=== PATIENT | male | born 1965 | race Caucasian/White ===

== ENCOUNTER 2020-12-05 08:20 | Emergency (ER) | payer OTHER, SELFPAY ==
--- NOTE | 2020-12-05 09:21 | RAD REPORT ---
EXAM DESCRIPTION: RAD - Chest Single View - 12/05/2020 9:04 am CLINICAL HISTORY: SOB COMPARISON: No comparisons FINDINGS: Patchy airspace disease predominantly left-sided also the right lung base. The heart size is within normal limits.No acute osseous abnormality. No significant pleural effusions or pneumothora x. IMPRESSION: Patchy airspace disease in the left lung and to a lesser extent the right lung concernin g for multifocal pneumonia, including Covid-19.
[2020-12-05] MEDS ORDERED: IPRATROPIUM BROM 0.5MG/2.5ML ONE (10:21)
[2020-12-05] MEDS ORDERED: ALBUTEROL 2.5 MG/3 ML NEB SOL ONE (10:21)
[2020-12-05] MEDS ORDERED: HYDROCODONE/CHLORPHEN 5 ML/OSYR ONE (10:21)
[2020-12-05] MEDS ORDERED: NA CHLORIDE 0.9% 1,000 ML ONE (10:22)
[2020-12-05 10:25] LABS: Absolute Lymphocytes (CBC) 0.9 K/uL (0.7-4.9); Basophils % 0.4 % (0-1.3); Hematocrit 41.1 % (39.6-49.0); Lymphocytes % 14.7 % (15.3-44.8); MPV 7.8 fL (7.6-11.3); RBC Red Blood Cell Count 4.39 M/uL (4.33-5.43)
[2020-12-05 10:46] LABS: Albumin 2.8 g/dL (3.4-5.0); Bilirubin Direct 0.1 mg/dL (0-0.2); Bilirubin Total 0.3 mg/dL (0.2-1.0); Potassium 5.1 mmol/L (3.5-5.1); Protein, Total 6.9 g/dL (6.4-8.2)
[2020-12-05] MEDS ORDERED: NA CHLORIDE 0.9% 500 ML ONE (12:14)
--- NOTE | 2020-12-05 12:43 | ER ---
Nurse's Notes [facility] Name: Grady Segal Age: 55 yrs Sex: Male : 1965 Arrival Date: 12/05/2020 Time: 08:21 Bed 17 Private MD: Bin Rodriguez Diagnosis: Pneumonia due to SARS-associated coronavirus;Dehydration Presentation: 12/05 08:31 Chief complaint: Patient states: Covid positive since 11/27/20. Still has fever and SOB. ll1 O2 sat 87-94% at home. Coronavirus screen: Client denies travel out of the [place] in the last 14 days. chills, diarrhea, difficulty breathing, fatigue, fever, nausea, shaking with chills, loss of taste or smell, Client presents with at least one sign or symptom that may indicate coronavirus-19. Standard/surgical mask placed on the client. Client reports previous positive COVID test result. Ebola Screen: Patient denies travel to an Ebola-affected area in the 21 days before illness onset. Initial Sepsis Screen: Does the patient meet any 2 criteria? No. Patient's initial sepsis screen is negative. Does the patient have a suspected source of infection? Yes: Productive cough/pneumonia. Risk Assessment: Do you want to hurt yourself or someone else? Patient reports no desire to harm self or others. Onset of symptoms was November 26, 2020. 08:31 Method Of Arrival: Ambulatory ll1 08:31 Acuity: AUTUMN 3 ll1 Historical: - Allergies: 08:34 PENICILLINS; ll1 - PMHx: 08:34 Hypertensive disorder; high cholesterol; tachycardia; ll1 - PSHx: 08:34 shoulder SX; ll1 - Immunization history:: Client reports having NOT received the Covid vaccine. Flu vaccine is up to date. - Social history:: Smoking status: Patient denies any tobacco usage or history of. Screenin:35 Abuse screen: Denies threats or abuse. Nutritional screening: No deficits noted. ll1 Tuberculosis screening: No symptoms or risk factors identified. 10:10 Fall Risk Ambulatory Aid- None/Bed Rest/Nurse Assist (0 pts). Gait- Normal/Bed jd3 Rest/Wheelchair (0 pts) Mental Status- Oriented to own ability (0 pts). Total Contreras Fall Scale indicates No Risk (0-24 pts). Assessment: 10:08 General: Appears in no apparent distress. uncomfortable, Behavior is calm, cooperative, jd3 appropriate for age, Reports chills for >3 days, fatigue for >3 days. Pain: Denies pain. Neuro: Level of Consciousness is awake, alert, obeys commands, Oriented to person, place, time, situation. Cardiovascular: Capillary refill < 3 seconds Patient's skin is warm and dry. Respiratory: Reports shortness of breath at rest cough that is non-productive, persistent Airway is patent Respiratory effort is even, unlabored, Respiratory pattern is regular, symmetrical, the patient has mild shortness of breath. GI: No signs and/or symptoms were reported involving the gastrointestinal system. : No signs and/or symptoms were reported regarding the genitourinary system. EENT: No signs and/or symptoms were reported regarding the EENT system. Derm: Skin is intact, Skin is dry, Skin is normal, Skin temperature is warm. Musculoskeletal: Circulation, motion, and sensation intact. Range of motion: intact in all extremities. 11:14 Reassessment: Patient appears in no apparent distress at this time. Patient and/or jd3 family updated on plan of care and expected duration. Pain level reassessed. Patient is alert, oriented x 3, equal unlabored respirations, skin warm/dry/pink. Patient states feeling better. 12:29 Reassessment: Patient appears in no apparent distress at this time. Patient and/or jd3 family updated on plan of care and expected duration. Pain level reassessed. Patient is alert, oriented x 3, equal unlabored respirations, skin warm/dry/pink. Patient states feeling better. 13:20 Reassessment: Patient appears in no apparent distress at this time. Patient and/or jd3 family updated on plan of care and expected duration. Pain level reassessed. Patient is alert, oriented x 3, equal unlabored respirations, skin warm/dry/pink. even and steady gait upon discharge. reported understanding of discharge instructions. Patient states feeling better. Vital Signs: 08:31 Pulse 81; Resp 18; Temp 99.7; Pulse Ox 96% ; Weight 95.25 kg; Height 5 ft. 8 in. ll1 (172.72 cm); Pain 0/10; 10:08 BP 94 / 68; Pulse 70; Resp 18 S; Pulse Ox 94% on R/A; jd3 11:14 BP 95 / 63; Pulse 73; Resp 17 S; Pulse Ox 95% on R/A; jd3 12:29 BP 109 / 68; Pulse 69; Resp 17 S; Pulse Ox 95% on R/A; jd3 13:20 BP 113 / 70; Pulse 68; Resp 18 S; Pulse Ox 95% on R/A; jd3 08:31 Body Mass Index 31.93 (95.25 kg, 172.72 cm) ll1 ED Course: 08:21 Patient arrived in ED. mr 08:21 Bin Rodriguez DO is Private Physician. mr 08:25 Medhat Miller, CRISTHIAN is PHCP. pm1 08:25 Tip Bello MD is Attending Physician. pm1 08:31 Arm band placed on Patient placed in an exam room, on a stretcher. ll1 08:34 Triage completed. ll1 08:35 Patient has correct armband on for positive identification. Bed in low position. Call ll1 light in reach. Side rails up X 1. Pulse ox on. NIBP on. 09:04 Chest Single View XRAY In Process Unspecified. EDMS 09:48 Irvin Walters, RN is Primary Nurse. jd3 09:57 Inserted saline lock: 20 gauge in right antecubital area, using aseptic technique. jd3 Blood collected. 13:21 No provider procedures requiring assistance completed. IV discontinued, intact, jd3 bleeding controlled, No redness/swelling at site. Pressure dressing applied. Administered Medications: 10:07 Drug: NS 0.9% 1000 ml Route: IV; Rate: 1000 ml; Site: right antecubital; jd3 11:00 Follow up: Response: No adverse reaction; IV Status: Completed infusion jd3 10:07 Drug: Albuterol - atroVENT (ipratropium) (3:1) (2.5 mg - 0.5 mg) 3 ml Route: Nebulizer; jd3 11:00 Follow up: Response: No adverse reaction jd3 10:08 Drug: Tussionex Pennkinetic ER (chlorpheniramine-hydrocodone) Suspension 5 ml Route: PO;jd3 11:00 Follow up: Response: No adverse reaction jd3 11:55 Drug: NS 0.9% 500 ml Route: IV; Rate: bolus; Site: right antecubital; jd3 12:55 Follow up: Response: No adverse reaction; IV Status: Completed infusion; IV Intake: jd3 500ml Intake: 12:55 IV: 500ml; Total: 500ml. jd3 Outcome: 12:42 Discharge ordered by . pm1 13:21 Discharged to home ambulatory, with family. jd3 13:21 Condition: stable 13:21 Discharge instructions given to patient, Instructed on discharge instructions, follow up and referral plans. medication usage, Demonstrated understanding of instructions, follow-up care, medications, Prescriptions given X 4. 13:22 Patient left the ED. jd3 Signatures: Dispatcher [employer] Edne Augustine PolyMedhat bryant, CRISHTIAN FIELD TECH pm1 Irvin Walters RN RN jd3 Krys Caraballo RN RN ll1
--- NOTE | 2020-12-05 12:43 | EDPHYS ---
Physician Documentation [facility] Name: Grady Segal Age: 55 yrs Sex: Male : 1965 Arrival Date: 12/05/2020 Time: 08:21 Bed 17 Private MD: Shawn Rodriguezh ED Physician Tip Bello HPI: 12/05 08:38 This 55 yrs old Male presents to ER via Ambulatory with complaints of Covid+, pm1 Cough, Breathing Difficulty. 08:38 Onset: The symptoms/episode began/occurred 2 week(s) ago. Associated signs and pm1 symptoms: Pertinent positives: cough, shortness of breath, diarrhea x 3 that resolved yesterday. Vomit x 1 2-3 days ago, Pertinent negatives: constipation, dysuria, earache, fever, sore throat. Modifying factors: The patient symptoms are alleviated by nebulizer treatment(s). The patient has not experienced similar symptoms in the past. The patient has not recently seen a physician. Patient with onset of symptoms, cough, congestion and change in taste November 22. Diagnosed with covid a few days later. Multiple family members with covid. Patient with shortness of breath onset 2-3 days ago. Has been using family member's nebulizer machine. Historical: - Allergies: 08:34 PENICILLINS; ll1 - PMHx: 08:34 Hypertensive disorder; high cholesterol; tachycardia; ll1 - PSHx: 08:34 shoulder SX; ll1 - Immunization history:: Client reports having NOT received the Covid vaccine. Flu vaccine is up to date. - Social history:: Smoking status: Patient denies any tobacco usage or history of. ROS: 08:38 Constitutional: Negative for fever, chills, and weight loss, Cardiovascular: Negative pm1 for chest pain, palpitations, and edema. 08:38 Back: Negative for injury and pain, : Negative for injury, bleeding, discharge, and swelling, MS/Extremity: Negative for injury and deformity, Skin: Negative for injury, rash, and discoloration, Neuro: Negative for headache, weakness, numbness, tingling, and seizure. 08:38 ENT: Positive for sore throat, Negative for ear pain. 08:38 Respiratory: Positive for cough, shortness of breath. 08:38 Abdomen/GI: Positive for nausea, vomiting, and diarrhea, Negative for abdominal pain, constipation. 08:38 All other systems are negative. Exam: 08:38 Constitutional: This is a well developed, well nourished patient who is awake, alert, pm1 and in no acute distress. 08:38 Back: No spinal tenderness. No costovertebral tenderness. Full range of motion. Skin: Warm, dry with normal turgor. Normal color with no rashes, no lesions, and no evidence of cellulitis. MS/ Extremity: Pulses equal, no cyanosis. Neurovascular intact. Full, normal range of motion. 08:38 Head/face: Exam is negative for acute changes. 08:38 Eyes: Exam is negative for acute changes, Extraocular movements: no acute changes, Conjunctiva: no acute changes, no injection. 08:38 ENT: Exam is negative for acute changes, Mouth: Lips: normal, Oral mucosa: normal, pink and intact. 08:38 Cardiovascular: Rate: normal, Rhythm: regular, Pulses: no pulse deficits are appreciated. 08:38 Respiratory: the patient does not display signs of respiratory distress, Breath sounds: bronchial sounds, that are mild, are heard diffusely. 08:38 Abdomen/GI: Inspection: abdomen appears normal, Palpation: abdomen is soft and non-tender, in all quadrants. 08:38 Neuro: Orientation: is normal, Mentation: is normal, Motor: is normal, moves all fours. Vital Signs: 08:31 Pulse 81; Resp 18; Temp 99.7; Pulse Ox 96% ; Weight 95.25 kg; Height 5 ft. 8 in. ll1 (172.72 cm); Pain 0/10; 10:08 BP 94 / 68; Pulse 70; Resp 18 S; Pulse Ox 94% on R/A; jd3 11:14 BP 95 / 63; Pulse 73; Resp 17 S; Pulse Ox 95% on R/A; jd3 12:29 BP 109 / 68; Pulse 69; Resp 17 S; Pulse Ox 95% on R/A; jd3 13:20 BP 113 / 70; Pulse 68; Resp 18 S; Pulse Ox 95% on R/A; jd3 08:31 Body Mass Index 31.93 (95.25 kg, 172.72 cm) ll1 MDM: 08:34 Patient medically screened. pm1 11:25 Counseling: I had a detailed discussion with the patient and/or guardian regarding: the pm1 historical points, exam findings, and any diagnostic results supporting the discharge/admit diagnosis, lab results, radiology results, patient offered admission. Patient wants to go home since he is feeling better. 12:21 Data reviewed: vital signs. Data interpreted: Pulse oximetry: on room air is 95 %. pm1 Interpretation: normal. 12/05 08:37 Order name: CBC with Diff; Complete Time: 10:40 pm1 12/05 08:37 Order name: BMP; Complete Time: 11:17 pm1 12/05 08:37 Order name: LFT's; Complete Time: 11:17 pm1 12/05 08:37 Order name: Chest Single View XRAY; Complete Time: 10:05 pm1 12/05 08:37 Order name: IV Saline Lock; Complete Time: 09:57 pm1 Administered Medications: 10:07 Drug: NS 0.9% 1000 ml Route: IV; Rate: 1000 ml; Site: right antecubital; jd3 11:00 Follow up: Response: No adverse reaction; IV Status: Completed infusion jd3 10:07 Drug: Albuterol - atroVENT (ipratropium) (3:1) (2.5 mg - 0.5 mg) 3 ml Route: Nebulizer; jd3 11:00 Follow up: Response: No adverse reaction jd3 10:08 Drug: Tussionex Pennkinetic ER (chlorpheniramine-hydrocodone) Suspension 5 ml Route: PO;jd3 11:00 Follow up: Response: No adverse reaction jd3 11:55 Drug: NS 0.9% 500 ml Route: IV; Rate: bolus; Site: right antecubital; jd3 12:55 Follow up: Response: No adverse reaction; IV Status: Completed infusion; IV Intake: jd3 500ml Disposition: 15:04 Co-signature as Attending Physician, Tip Bello MD. rn Disposition Summary: 12/05/20 12:42 Discharge Ordered Location: Home pm1 Problem: new pm1 Symptoms: have improved pm1 Condition: Stable pm1 Diagnosis - Pneumonia due to SARS-associated coronavirus pm1 - Dehydration pm1 Followup: pm1 - With: Emergency Department - When: As needed - Reason: Worsening of condition Followup: pm1 - With: Private Physician - When: 2 - 3 days - Reason: Recheck today's complaints, Continuance of care, Re-evaluation by your physician Discharge Instructions: - Discharge Summary Sheet pm1 - Dehydration, Adult pm1 - Rehydration, Adult pm1 - COVID-19 pm1 - COVID-19: What Your Test Results Mean - [facility] pm1 - COVID-19 Frequently Asked Questions pm1 Forms: - Medication Reconciliation Form pm1 - Thank You Letter pm1 - Antibiotic Education pm1 - Prescription Opioid Use pm1 Prescriptions: - Albuterol Sulfate 2.5 mg /3 mL (0.083 %) Inhalation Solution for Nebulization - inhale 1 unit by NEBULIZATION route every 6 hours As needed; 1 box; Refills: 0, pm1 Product Selection Permitted - Nebulizer machine - inhale 1 ampule by NEBULIZATION route every 6 hours As needed; 1 Device; pm1 Refills: 0, Product Selection Permitted - Tessalon Perles 100 mg Oral Capsule - take 1 capsule by ORAL route every 8 hours As needed; 15 capsule; Refills: 0, pm1 Product Selection Permitted - Zofran 4 mg Oral Tablet - take 1 tablet by ORAL route every 12 hours As needed; 20 tablet; Refills: 0, pm1 Product Selection Permitted Signatures: Dispatcher [employer] EDTip Geiger MD MD rn Marinas, Patrick, NP E COMMERCE ARCHITECT pm1 Irvin Walters RN RN jd3 Lewis, Lynsay, RN RN ll1
[2020-12-05 13:30] VITALS: O2SAT 95
[2020-12-05 13:32] VITALS: BP 113/70
[2020-12-05 13:47] VITALS: TEMP 98.1
== END 2020-12-05 13:22 | disposition home or self-care (01) ==
LOC: ER 08:20
DX: U07.1 COVID-19 (principal); J12.82 Pneumonia due to coronavirus disease 2019; E86.0 Dehydration; I10 Essential (primary) hypertension; Z88.0 Allergy status to penicillin
CPT/HCPCS: 96361; 85025; 80048; 36415; 80076; 71045; 96360; 99284; J7040; J7030

== ENCOUNTER 2020-12-06 16:05 | Emergency (ER) | payer OTHER ==
[2020-12-06 17:57] LABS: Absolute Lymphocytes (CBC) 0.7 K/uL (0.7-4.9); Basophils % 0.5 % (0-1.3); Hematocrit 37.6 % (39.6-49.0); Lymphocytes % 8.7 % (15.3-44.8); MPV 7.4 fL (7.6-11.3)
[2020-12-06] MEDS ORDERED: ALBUTEROL 2.5 MG/3 ML NEB SOL ONE (18:03)
[2020-12-06] MEDS ORDERED: METHYLPREDNISOLONE 125 MG INJ ONE (18:03)
[2020-12-06] MEDS ORDERED: IPRATROPIUM BROM 0.5MG/2.5ML ONE (18:03)
[2020-12-06 18:25] LABS: Protime INR 1.03
[2020-12-06] MEDS ORDERED: CODEINE 30MG/APAP 300MG TAB ONE (18:41)
[2020-12-06 18:58] LABS: Urine Blood Trace-intact (Negative); Urine Glucose Negative (Negative); Urine Protein 3+ (Negative); Urine pH 5.5 (5.0-7.0)
[2020-12-06 18:59] LABS: ALT/SGPT 87 U/L (12-78); AST/SGOT 71 U/L (15-37); Albumin 2.2 g/dL (3.4-5.0); Alkaline Phosphatase 68 U/L (45-117); BUN Blood Urea Nitrogen 24 mg/dL (7-18); Bicarbonate 23 mmol/L (21-32); Bilirubin Direct 0.2 mg/dL (0-0.2); Bilirubin Total 0.3 mg/dL (0.2-1.0); Glucose Level 124 mg/dL (74-106); Lipase 560 U/L (73-393); Potassium 4.6 mmol/L (3.5-5.1); Protein, Total 6.5 g/dL (6.4-8.2); Sodium Level 130 mmol/L (136-145); Troponin (Emerg Dept Use Only) < 0.02 ng/mL (0.0-0.045)
[2020-12-06] MEDS ORDERED: ACETAMINOPHEN 500 MG TAB ONE (19:08)
--- NOTE | 2020-12-06 19:10 | RAD REPORT ---
EXAM DESCRIPTION: RAD - Chest Single View - 12/06/2020 6:16 pm CLINICAL HISTORY: SOB Chest pain. COMPARISON: Chest Single View dated 12/05/2020 FINDINGS: Portable technique limits examination quality. Bilateral pulmonary opacities appear similar to yesterday's study. Most likely, these are related to viral infection. The heart is normal in size.
[2020-12-06 19:26] LABS: Urine Bacteria <20 /HPF (NONE SEEN); Urine RBC NONE SEEN /HPF (NONE SEEN)
--- NOTE | 2020-12-06 21:24 | ER ---
Nurse's Notes [facility] Name: Grady Segal Age: 55 yrs Sex: Male : 1965 Arrival Date: 12/06/2020 Time: 16:07 Bed 23 Private MD: Bin Rodriguez Diagnosis: Coronavirus - Hypoxia Presentation: 12/06 16:18 Chief complaint: Patient states: SOB, pink in sputum, weak, shaky, fever has gotten ll1 worse since yesterday. Coronavirus screen: Client denies travel out of the [place] in the last 14 days. congestion, cough unrelated to allergies, difficulty breathing, fatigue, fever, headache, shortness of breath, Client presents with at least one sign or symptom that may indicate coronavirus-19. Standard/surgical mask placed on the client. Ebola Screen: Patient denies travel to an Ebola-affected area in the 21 days before illness onset. Initial Sepsis Screen: Does the patient meet any 2 criteria? HR > 90 bpm. No. Patient's initial sepsis screen is negative. Does the patient have a suspected source of infection? Yes: Productive cough/pneumonia. Risk Assessment: Do you want to hurt yourself or someone else? Patient reports no desire to harm self or others. Onset of symptoms was November 24, 2020. 16:18 Method Of Arrival: Wheelchair ll1 16:18 Acuity: AUTUMN 3 ll1 Historical: - Allergies: 16:20 PENICILLINS; ll1 - PMHx: 16:20 High Cholesterol; Hypertensive disorder; Tachycardia; ll1 - PSHx: 16:20 shoulder SX; ll1 - Immunization history:: Client reports having NOT received the Covid vaccine. Flu vaccine is not up to date. - Social history:: Smoking status: Patient denies any tobacco usage or history of. Screenin:40 Abuse screen: Denies threats or abuse. Denies injuries from another. Nutritional zb screening: No deficits noted. Tuberculosis screening: No symptoms or risk factors identified. Fall Risk None identified. Assessment: 16:40 General: Appears in no apparent distress. Behavior is appropriate for age. Pain: Denies zb pain. Neuro: Level of Consciousness is awake, alert. Cardiovascular: Patient's skin is warm and dry. Respiratory: Reports shortness of breath at rest Airway is patent Trachea midline Respiratory effort is unlabored, Respiratory pattern is tachypnea Breath sounds are diminished bilaterally. Breath sounds with rhonchi bilaterally. Onset: The symptoms/episode began/occurred October 27 2020, the patient has moderate shortness of breath. GI: No deficits noted. Derm: Skin is intact, Skin is dry, Skin is normal, Skin temperature is warm. Musculoskeletal: Range of motion: intact in all extremities. 17:25 Reassessment: pt ambulated in room desated to 87%. 2 litters of nc applied patient zb currently at 93%. 18:22 Reassessment: Patient appears in no apparent distress at this time. Patient and/or zb family updated on plan of care and expected duration. Pain level reassessed. Patient is alert, oriented x 3, equal unlabored respirations, skin warm/dry/pink. neb tx ongoing. 19:00 Reassessment: Patient appears in no apparent distress at this time. Patient and/or zb family updated on plan of care and expected duration. Pain level reassessed. Patient is alert, oriented x 3, equal unlabored respirations, skin warm/dry/pink. 20:27 Reassessment: Patient appears in no apparent distress at this time. Patient and/or zb family updated on plan of care and expected duration. Pain level reassessed. Patient is alert, oriented x 3, equal unlabored respirations, skin warm/dry/pink. 21:30 Reassessment: Patient appears in no apparent distress at this time. Patient and/or zb family updated on plan of care and expected duration. Pain level reassessed. Patient is alert, oriented x 3, equal unlabored respirations, skin warm/dry/pink. 22:30 Reassessment: Patient appears in no apparent distress at this time. Patient and/or zb family updated on plan of care and expected duration. Pain level reassessed. Patient is alert, oriented x 3, equal unlabored respirations, skin warm/dry/pink. 23:24 Reassessment: Patient appears in no apparent distress at this time. Patient and/or zb family updated on plan of care and expected duration. Pain level reassessed. Patient is alert, oriented x 3, equal unlabored respirations, skin warm/dry/pink. EMS here to take patient. SBAR given to EMS. Vital Signs: 16:18 BP 105 / 65; Pulse 93; Resp 20; Temp 100.4; Pulse Ox 91% on R/A; Weight 95.25 kg; ll1 Height 5 ft. 8 in. (172.72 cm); Pain 0/10; 17:25 Pulse 111; Pulse Ox 87% on R/A; zb 17:30 Pulse Ox 93% on 2 lpm NC; zb 18:23 BP 144 / 67; Pulse 82; Resp 20; Pulse Ox 96% on 5% Nebulizer Mask; zb 19:00 BP 118 / 71; Pulse 91; Resp 16; Pulse Ox 95% ; zb 20:00 BP 119 / 76; Pulse 95; Resp 16; Temp 98.2; Pulse Ox 93% on 1 lpm NC; zb 21:30 BP 120 / 83; Pulse 82; Resp 19; Pulse Ox 95% on 1 lpm NC; zb 22:30 BP 117 / 68; Pulse 84; Resp 22; Pulse Ox 96% on 1 lpm NC; zb 23:21 BP 111 / 65; Pulse 92; Resp 20; Pulse Ox 96% on 1 lpm NC; zb 16:18 Body Mass Index 31.93 (95.25 kg, 172.72 cm) ll1 ED Course: 16:07 Patient arrived in ED. mr 16:07 Bin Rodriguez DO is Private Physician. mr 16:20 Triage completed. ll1 16:20 Arm band placed on Patient placed in an exam room, on a stretcher. ll1 16:40 Alberta Singleton RN is Primary Nurse. zb 16:41 Medhat Miller NP is PHCP. pm1 16:41 Tip Bello MD is Attending Physician. pm1 16:42 Patient has correct armband on for positive identification. Pulse ox on. NIBP on. Door zb closed. Noise minimized. 17:30 Initial lab(s) drawn, by me, First set of blood cultures drawn by me, EKG done, by EKG zb tech. reviewed by Medhat Miller NP. 18:16 Chest Single View XRAY In Process Unspecified. EDMS 18:23 Inserted saline lock: 20 gauge in right antecubital area, using aseptic technique. zb Blood collected. 18:55 PHCP role handed off by Medhat Miller NP [facility] 18:55 Ja Reyes PA is PHCP. jmm 19:13 Called [facility] and spoke to Madelyn Hong to initiate transfer. Was provided a fax number [phone] and told to fax the pts demographics and clinicals and that she would work on the request and call back. 20:47 Madelyn Hong with [facility] called back to give admin approval. The pt is going to [facility]. The tt3 accepting physician is Dr. Sams. Nurse to call report to . MOT to be faxed to per Madelyn's request. Information was passed on to JESSE Altman, pt provider. 22:00 Patient transferred, IV remains in place. zb 23:24 No provider procedures requiring assistance completed. zb Administered Medications: 18:08 Drug: Albuterol - atroVENT (ipratropium) (3:1) (2.5 mg - 0.5 mg) 3 ml Route: Nebulizer; zb 18:54 Follow up: Response: No adverse reaction; Marked relief of symptoms zb 18:08 Drug: SOLU-Medrol (methylPrednisoLONE) 125 mg Route: IVP; Site: right antecubital; zb 18:54 Follow up: Response: No adverse reaction; Marked relief of symptoms zb 18:30 Not Given (Physician Discretion): Tylenol (acetaminophen)-Codeine #3 (120 mg - 12 mg) 5 pm1 ml PO once; RASS on ADMIN: Combtv4, Very Agttd3, Agttd2, Rstlss1, AlertClm0, Drwsy-1, Lt Sdtn-2, Mod Sdtn-3, Dp Sdtn-4, UnArsble-5 18:53 Drug: Tylenol 1000 mg Route: PO; zb 21:30 Follow up: Response: No adverse reaction; Temperature is decreased zb Outcome: 21:24 ER care complete, transfer ordered by . rohith 23:25 Transferred by ground EMS Transfer form completed. Note: [facility] zb 23:25 Condition: stable 23:25 Discharge instructions given to patient, Instructed on the need for transfer. 23:25 Patient left the ED. zb Signatures: Dispatcher [employer] EDMS Ja Reyes PA PA jmm Rivera, Mary mr Marinas, Patrick, TRADE MARKER TRADE MARKER pm1 Krys Caraballo RN RN ll1 Johnnie Montoya tt3 Alberta Singleton RN RN zb Corrections: (The following items were deleted from the chart) 17:05 16:18 BP 105 / 65; Pulse 93bpm; Resp 18bpm; Pulse Ox 91% RA; Temp 100.4F; 95.25 kg; ll1 Height 5 ft. 8 in.; BMI: 31.9; Pain 0/10; ll1 17:34 16:40 Respiratory: Reports shortness of breath at rest Airway is patent Trachea midline zb Respiratory effort is unlabored, Respiratory pattern is tachypnea Breath sounds are diminished bilaterally. Onset: The symptoms/episode began/occurred October 27 2020, the patient has moderate shortness of breath zb 21:30 19:00 BP 119 / 76; Pulse 95bpm; Resp 16bpm; Pulse Ox 93% 1 lpm Nasal Cannula; zb zb
--- NOTE | 2020-12-06 21:25 | EDPHYS ---
Physician Documentation [facility] Name: Grady Segal Age: 55 yrs Sex: Male : 1965 Arrival Date: 12/06/2020 Time: 16:07 Bed 23 Private MD: Bin Rodriguez ED Physician Tip Bello HPI: 12/06 16:48 This 55 yrs old Male presents to ER via Wheelchair with complaints of pm1 COVID+,Pneumonia. 16:48 The patient has shortness of breath at rest, with light activity. Onset: The pm1 symptoms/episode began/occurred 3 day(s) ago. Duration: The symptoms are continuous, and are steadily getting worse. The patient's shortness of breath is aggravated by exertion, light activity, is alleviated by nothing. Associated signs and symptoms: Pertinent positives: fever, Pertinent negatives: chest pain, nausea, vomiting, diarrhea. Severity of symptoms: in the emergency department the symptoms are worse. The patient has been recently seen at the [facility] Emergency Department, yesterday, for similar complaints labs were performed, X-rays were performed. Patient presents to the ER with complaints of increased shortness of breath. Was seen in the ER yesterday and diagnosed with covid pneumonia. Onset of covid symptoms on November 22 and was diagnosed with covid swab a few days later. Shortness of breath onset 3-4 days ago. Diarrhea x 3 resolved 2 days ago. Vomiting x 1 2-3 days ago. Multiple family members with covid. Historical: - Allergies: 16:20 PENICILLINS; ll1 - PMHx: 16:20 High Cholesterol; Hypertensive disorder; Tachycardia; ll1 - PSHx: 16:20 shoulder SX; ll1 - Immunization history:: Client reports having NOT received the Covid vaccine. Flu vaccine is not up to date. - Social history:: Smoking status: Patient denies any tobacco usage or history of. ROS: 16:48 Eyes: Negative for injury, pain, redness, and discharge, ENT: Negative for injury, pm1 pain, and discharge, Neck: Negative for injury, pain, and swelling, Cardiovascular: Negative for chest pain, palpitations, and edema. 16:48 Abdomen/GI: Negative for abdominal pain, nausea, vomiting, diarrhea, and constipation, Back: Negative for injury and pain, MS/Extremity: Negative for injury and deformity, Skin: Negative for injury, rash, and discoloration. 16:48 Constitutional: Positive for body aches, fever. 16:48 Respiratory: Positive for cough, shortness of breath. 16:48 Neuro: Positive for generalized weakness, Negative for headache. Exam: 16:48 Constitutional: This is a well developed, well nourished patient who is awake, alert, pm1 and in no acute distress. Head/Face: Normocephalic, atraumatic. 16:48 Back: No spinal tenderness. No costovertebral tenderness. Full range of motion. Skin: Warm, dry with normal turgor. Normal color with no rashes, no lesions, and no evidence of cellulitis. MS/ Extremity: Pulses equal, no cyanosis. Neurovascular intact. Full, normal range of motion. 16:48 Eyes: Exam is negative for acute changes, Extraocular movements: no acute changes, Conjunctiva: no acute changes, no injection. 16:48 ENT: TM's: are normal, Mouth: Lips: normal, Oral mucosa: normal, pink and intact, moist. 16:48 Cardiovascular: Exam negative for acute changes, Rate: normal, Rhythm: regular, Pulses: no pulse deficits are appreciated. 16:48 Respiratory: the patient does not display signs of respiratory distress, Breath sounds: bronchial sounds, are heard diffusely. 16:48 Abdomen/GI: Inspection: abdomen appears normal, Palpation: abdomen is soft and non-tender, in all quadrants. 16:48 Neuro: Exam negative for acute changes, Orientation: is normal, Mentation: is normal, Motor: is normal, moves all fours. Vital Signs: 16:18 BP 105 / 65; Pulse 93; Resp 20; Temp 100.4; Pulse Ox 91% on R/A; Weight 95.25 kg; ll1 Height 5 ft. 8 in. (172.72 cm); Pain 0/10; 17:25 Pulse 111; Pulse Ox 87% on R/A; zb 17:30 Pulse Ox 93% on 2 lpm NC; zb 18:23 BP 144 / 67; Pulse 82; Resp 20; Pulse Ox 96% on 5% Nebulizer Mask; zb 19:00 BP 118 / 71; Pulse 91; Resp 16; Pulse Ox 95% ; zb 20:00 BP 119 / 76; Pulse 95; Resp 16; Temp 98.2; Pulse Ox 93% on 1 lpm NC; zb 21:30 BP 120 / 83; Pulse 82; Resp 19; Pulse Ox 95% on 1 lpm NC; zb 22:30 BP 117 / 68; Pulse 84; Resp 22; Pulse Ox 96% on 1 lpm NC; zb 23:21 BP 111 / 65; Pulse 92; Resp 20; Pulse Ox 96% on 1 lpm NC; zb 16:18 Body Mass Index 31.93 (95.25 kg, 172.72 cm) ll1 MDM: 16:42 Patient medically screened. pm1 17:02 Data reviewed: vital signs. Data interpreted: Pulse oximetry: on room air is 91 %. pm12/06 17:29 Order name: BMP 12/06 17:29 Order name: Blood Culture Adult (2) pm12/06 17:29 Order name: C-Reactive Protein 12/06 17:29 Order name: CBC with Diff 12/06 17:29 Order name: D-Dimer; Complete Time: 18:37 pm12/06 17:29 Order name: Ferritin; Complete Time: 19:01 pm12/06 17:29 Order name: Flu; Complete Time: 18:28 pm12/06 17:29 Order name: LFT's; Complete Time: 19:01 pm12/06 17:29 Order name: Lactate; Complete Time: 18:37 pm12/06 17:29 Order name: Lipase; Complete Time: 19:01 pm12/06 17:29 Order name: PT-INR; Complete Time: 18:37 pm12/06 17:29 Order name: Procalcitonin; Complete Time: 19:09 pm12/06 17:29 Order name: Ptt, Activated; Complete Time: 18:37 pm12/06 17:29 Order name: Strep; Complete Time: 18:24 pm12/06 17:29 Order name: Chest Single View XRAY; Complete Time: 19:18 pm12/06 17:29 Order name: Troponin (emerg Dept Use Only); Complete Time: 19:01 pm12/06 17:29 Order name: Urine Microscopic Only; Complete Time: 19:32 pm12/06 17:29 Order name: EKG; Complete Time: 17:30 pm1 12/06 17:29 Order name: Cardiac monitoring; Complete Time: 18:54 pm1 12/06 17:29 Order name: Droplet/Contact Precautions; Complete Time: 17:34 pm1 12/06 17:30 Order name: Basic Metabolic Panel; Complete Time: 19:01 EDMS 12/06 17:30 Order name: Blood Culture EDMD 12/06 17:30 Order name: C-Reactive Protein; Complete Time: 19:01 EDMS 12/06 17:30 Order name: CBC with Automated Diff; Complete Time: 18:00 EDMS 12/06 18:19 Order name: Throat Culture EDMD 12/06 18:58 Order name: Urine Dipstick-Ancillary EDMD 12/06 17:29 Order name: EKG - Nurse/Tech; Complete Time: 18:54 pm1 12/06 17:29 Order name: IV Start; Complete Time: 17:34 pm1 12/06 17:29 Order name: Labs collected and sent; Complete Time: 17:34 pm1 12/06 17:29 Order name: O2 Per Protocol; Complete Time: 17:34 pm1 12/06 17:29 Order name: O2 Sat Monitoring; Complete Time: 17:34 pm1 12/06 17:29 Order name: Urine Dipstick-Ancillary (obtain specimen); Complete Time: 18:54 pm1 12/06 17:58 Order name: Labs - recollect needed: recollect all the blood/ hemolyzed; Complete Time: eb 18:16 Administered Medications: 18:08 Drug: Albuterol - atroVENT (ipratropium) (3:1) (2.5 mg - 0.5 mg) 3 ml Route: Nebulizer; zb 18:54 Follow up: Response: No adverse reaction; Marked relief of symptoms zb 18:08 Drug: SOLU-Medrol (methylPrednisoLONE) 125 mg Route: IVP; Site: right antecubital; zb 18:54 Follow up: Response: No adverse reaction; Marked relief of symptoms zb 18:30 Not Given (Physician Discretion): Tylenol (acetaminophen)-Codeine #3 (120 mg - 12 mg) 5 pm1 ml PO once; RASS on ADMIN: Combtv4, Very Agttd3, Agttd2, Rstlss1, AlertClm0, Drwsy-1, Lt Sdtn-2, Mod Sdtn-3, Dp Sdtn-4, UnArsble-5 18:53 Drug: Tylenol 1000 mg Route: PO; zb 21:30 Follow up: Response: No adverse reaction; Temperature is decreased zb Disposition Summary: 12/06/20 21:24 Transfer Ordered Transfer Location: Other Acute Care Facility jmm Reason: Higher level of care jmm Condition: Stable jmm Problem: an acute exacerbation jmm Symptoms: have worsened jmm Accepting Physician: Dr. Sams(12/06/20 23:25) zb Diagnosis - Coronavirus - Hypoxia jmm Discharge Instructions: - Discharge Summary Sheet tt3 Forms: - Medication Reconciliation Form tt3 - SBAR form tt3 Addendum: 12/08/2020 23:22 Co-signature as Attending Physician, Tip Bello MD. r n 23:23 I agree with the assessment and plan of care. Attestation: The patient's history, exam r n findings, diagnostics, and a summary of any interventions or procedures was reviewed in detail with Ja MOLINA. Signatures: Dispatcher [employer] EDMS Ja Reyes PA PA jmm Nieto, Roman, MD MD rn Marinas, Patrick, [employer] pm1 Kelly Montenegro Lynsay, RN RN ll1 Alberta Singleton RN RN zb Corrections: (The following items were deleted from the chart) 12/06 23:25 21:24 Dr. Sams [facility] zb
[2020-12-06 23:38] VITALS: TEMP 98.2
[2020-12-06 23:41] VITALS: O2SAT 96
[2020-12-06 23:43] VITALS: BP 111/65
== END 2020-12-06 23:25 ==
LOC: ER 16:05
DX: U07.1 COVID-19 (principal); I10 Essential (primary) hypertension; Z88.0 Allergy status to penicillin
CPT/HCPCS: 93005; 87040 ×2; 87070; 85025; 80048; 36415; 85610; 85379; 80076; 87081; 83605; 85730; 84484; 82728; 83690; 84145; 86140; 87804 ×2; 71045; 96374; 99285; J2930; 81003; 81015